=== PATIENT | female | born 1985 ===

== ENCOUNTER 2021-06-07 13:43 | Outpatient (CLI) | payer OTHER ==
[2021-06-07] MEDS ORDERED: LACTATED RINGERS 500 ML IV ONE (14:49)
[2021-06-07] MEDS ORDERED: LACTATED RINGERS 1,000 ML IV SCH (15:00)
[2021-06-07] MEDS ORDERED: TERBUTALINE 1 MG/1 ML INJ SUB-Q STA (16:20)
[2021-06-07 19:44] LABS: Bacteria,Urine 1+ /HPF (Negative); Bilirubin,Urine NEG (Negative); Blood,Urine NEG (Negative); Color,Urine Straw (Yellow); Protein,Urine <15 mg/dL mg/dL (Negative); WBC,Urine < 1.0 /HPF (0.0-6.0)
[2021-06-07 20:07] VITALS: BP 105/66
== END 2021-06-07 20:50 | disposition home or self-care (01) ==
LOC: APU 13:43 → TRG 13:43
DX: O62.9 Abnormality of forces of labor, unspecified (principal); Z3A.33 33 weeks gestation of pregnancy
CPT/HCPCS: 59025; 81001; 96360; 96361; 96372; J3105; J7120

== ENCOUNTER 2021-06-12 19:52 | Outpatient (CLI) | payer OTHER ==
[2021-06-12 21:11] VITALS: BP 103/60
[2021-06-12] MEDS ORDERED: LACTATED RINGERS 1,000 ML IV ONE (21:22)
[2021-06-12 22:17] LABS: Bilirubin,Urine NEG (Negative); Blood,Urine NEG (Negative); Color,Urine Straw (Yellow); Protein,Urine <15 mg/dL mg/dL (Negative); Urobilinogen,Urine < 2.0 mg/dL (<2.0)
== END 2021-06-12 22:50 | disposition home or self-care (01) ==
LOC: TRG 19:52 → APU 20:17 → TRG 22:50
DX: Z34.93 Encounter for supervision of normal pregnancy, unspecified, third trimester (principal); Z3A.33 33 weeks gestation of pregnancy
CPT/HCPCS: 59025; 81001

== ENCOUNTER 2021-07-18 19:47 | Inpatient (IN) | payer OTHER ==
[2021-07-18] MEDS ORDERED: TERBUTALINE 1 MG/1 ML INJ SUB-Q PRN (20:34)
[2021-07-18] MEDS ORDERED: LOPERAMIDE 2 MG CAP PO PRN (20:34)
[2021-07-18] MEDS ORDERED: ACETAMINOPHEN 325 MG TAB PO PRN (20:34)
[2021-07-18] MEDS ORDERED: BUTORPHANOL 2 MG/1 ML INJ IV PRN (20:34)
[2021-07-18] MEDS ORDERED: miSOPROStol 200 MCG TAB PR PRN (20:34)
[2021-07-18] MEDS ORDERED: CARBOPROST TROMETHAMINE 250 MCG/1 ML INJ IM PRN (20:34)
[2021-07-18] MEDS ORDERED: MINERAL OIL 30 ML ORAL LIQD PO PRN (20:34)
[2021-07-18] MEDS ORDERED: OXYTOCIN 10 UNIT/1 ML INJ IM PRN (20:34)
[2021-07-18] MEDS ORDERED: METHYLERGONOVINE MALEATE 0.2 MG/ML VIAL IM PRN (20:34)
[2021-07-18] MEDS ORDERED: ONDANSETRON 4 MG/2 ML INJ IV PRN ×2 (20:34→21:46)
[2021-07-18] MEDS ORDERED: ePHEDrine SULFATE 50 MG/1 ML INJ IV PRN ×2 (20:34→21:46)
[2021-07-18] MEDS ORDERED: fentaNYL 100 MCG/2 ML INJ IV PRN (20:34)
[2021-07-18] MEDS ORDERED: LIDOCAINE (2%) 20 MG/1 ML VIAL 20 ML MDV INFILTRATI ONE (20:45)
[2021-07-18] MEDS ORDERED: AMPICILLIN/NS 2 GM/100 ML 2 GM/100 ML BAG IV ONE (21:00)
[2021-07-18] MEDS ORDERED: OXYTOCIN DRIP 30 UNITS/500 ML BAG IV SCH (21:00)
[2021-07-18 21:09] LABS: Hematocrit 35.9 % (30.3-42.9); Hemoglobin 12.8 gm/dl (10.1-14.3); Mean Corpuscular HGB Conc 36 % (30-34); Mean Corpuscular Volume 96 fl (79-97); Platelet Count 162 K/mm3 (140-440); Red Blood Count 3.74 M/mm3 (3.65-5.03); Red Cell Distribution Width 14.7 % (13.2-15.2)
[2021-07-18] MEDS: LACTATED RINGERS 1,000 ML IV SCH ×2 (21:09→22:28)
[2021-07-18] MEDS ORDERED: diphenhydrAMINE 50 MG/ML VIAL IV PRN (21:46)
[2021-07-18] MEDS ORDERED: NalbUPHINE 10 MG/1 ML INJ IV PRN (21:46)
[2021-07-18] MEDS ORDERED: NALOXONE 2 MG/2 ML INJ IV PRN (21:46)
[2021-07-18] MEDS ORDERED: LACTATED RINGERS 250 ML IV SOLN IV ONE (21:46)
[2021-07-18] MEDS ORDERED: fentaNYL-BUPIV 2 MCG/ML-0.125% 200 MCG/100 ML BAG EPIDURAL SCH (22:00)
--- NOTE | 2021-07-18 22:12 | Anesthesia Consultation ---
Anesthesia Consult and Med Hx Date of service: 07/18/21 - Airway Anesthetic Teeth Evaluation: Good ROM Head & Neck: Adequate Mental/Hyoid Distance: Adequate Mallampati Class: Class I Intubation Access Assessment: Good - Pulmonary Exam CTA: Yes - Cardiac Exam Cardiac Exam: RRR - Pre-Operative Health Status ASA Pre-Surgery Classification: ASA2 Proposed Anesthetic Plan: Epidural - Pulmonary Hx Smoking: No Hx Asthma: No COPD: No Hx Pneumonia: No Hx Sleep Apnea: No - Cardiovascular System Hx Hypertension: No Hx Heart Attack/AMI: No Hx Angina: No - Central Nervous System Hx Seizures: No Hx Psychiatric Problems: Yes (anxiety, depression on wellbutrin) - Gastrointestinal Hx Gastroesophageal Reflux Disease: No - Endocrine Hx Renal Disease: No Hx End Stage Renal Disease: No Hx Liver Disease: No Hx Insulin Dependent Diabetes: No Hx Non-Insulin Dependent Diabetes: No Hx Hypothyroidism: No Hx Hyperthyroidism: No - Hematic Hx Anemia: Yes (on meds) Hx Sickle Cell Disease: No - Other Systems Hx Alcohol Use: No
--- NOTE | 2021-07-18 22:13 | Progress Note ---
Labor Epidural - Labor Epidural Start Time: 21:56 Stop Time: 22:06 Performed by:: DEDE MUHAMMAD Procedure: Patient is requesting epidural for labor and pain. H&P, labs were reviewed. Patient IDed, H&P reviewed, all questions and concerns were answered, and consent was signed. Timeout was performed at bedside. Patient in sitting position. Sterile prep and drape was performed. 3ml of 1% lidocaine skin wheal at L[3]- L [4]. 18-gauge C4Robo epidural needle was advanced to loss of resistance with air technique 5cm. Negative CSF negative blood. Epidural catheter advanced to [10] centimeters. [negative] Aspiration [negative] test dose. Sterile dressing applied. Patient tolerated procedure.
--- NOTE | 2021-07-18 23:12 | History and Physical Report ---
History of Present Illness Date of examination: 07/18/21 Date of admission: 07/18/21 20:34 Chief complaint: Labor Pains History of present illness: records not present; patient states course complicated by Depression (Wellbutrin) and +GBS Past History Past Medical History: no pertinent history Past Surgical History: no surgical history Social history: no significant social history - Obstetrical History Expected Date of Delivery: 07/26/21 Actual Gestation: 38 Week(s) 6 Day(s) : 7 Para: 3 Hx # Term Pregnancies: 3 Number of Living Children: 3 Medications and Allergies Allergies Allergy/AdvReac Type Severity Reaction Status Date / Time No Known Allergies Allergy Unverified 06/07/21 14:47 Active Meds: Active Medications Acetaminophen (Acetaminophen 325 Mg Tab) 650 mg PO Q4H PRN PRN Reason: Pain, Mild (1-3) Butorphanol Tartrate (Butorphanol 2 Mg/1 Ml Inj) 1 mg IV Q2H PRN PRN Reason: Pain, Moderate(4-6) LABOR PAIN Carboprost Tromethamine (Carboprost Tromethamine 250 Mcg/1 Ml Inj) 250 mcg IM ONCE PRN PRN Reason: Uterine Bleeding Diphenhydramine HCl (Diphenhydramine 50 Mg/Ml Vial) 12.5 mg IV Q2H PRN PRN Reason: Itching Ephedrine Sulfate (Ephedrine Sulfate 50 Mg/1 Ml Inj) 10 mg IV Q2M PRN PRN Reason: Hypotension Fentanyl (Fentanyl 100 Mcg/2 Ml Inj) 100 mcg IV Q2H PRN PRN Reason: Pain,Severe (7-10) LABOR PAIN Lactated Ringer's (Lactated Ringers) 1,000 mls @ 125 mls/hr IV DIRECT DANA Last Admin: 07/18/21 22:28 Dose: 125 mls/hr Documented by: Oxytocin/Sodium Chloride (Pitocin/Ns 30 Unit/500ml) 30 units in 500 mls @ 40 mls/hr IV TITR DANA; Protocol Last Titration: 07/18/21 23:03 Dose: 8 ml/hr, 8 mls/hr Documented by: Fentanyl/Bupivacaine/Sodium Chlor (Fentanyl-Bupiv 2 Mcg/Ml-0.125%) 200 mcg in 100 mls @ 12 mls/hr EPIDURAL TITR DANA; Protocol Last Admin: 07/18/21 22:33 Dose: 12 mls/hr Documented by: Loperamide HCl (Loperamide 2 Mg Cap) 2 mg PO ONCE PRN PRN Reason: give with Hemabate Methylergonovine Maleate (Methylergonovine Maleate 0.2 Mg/Ml Vial) 0.2 mg IM ONCE PRN PRN Reason: Uterine Bleeding Mineral Oil (Mineral Oil 30 Ml Oral Liqd) 30 ml PO QHS PRN PRN Reason: Constipation Misoprostol (Misoprostol 200 Mcg Tab) 800 mcg NE ONCE PRN PRN Reason: Uterine Bleeding Nalbuphine HCl (Nalbuphine 10 Mg/1 Ml Inj) 2.5 mg IV Q2H PRN PRN Reason: Itching Naloxone HCl (Naloxone 2 Mg/2 Ml Inj) 0.2 mg IV Q5M PRN PRN Reason: Respiratory sedation Ondansetron HCl (Ondansetron 4 Mg/2 Ml Inj) 4 mg IV Q8H PRN PRN Reason: Nausea And Vomiting Oxytocin (Oxytocin 10 Unit/1 Ml Inj) 10 unit IM ONCE PRN PRN Reason: Uterine Bleeding Terbutaline Sulfate (Terbutaline 1 Mg/1 Ml Inj) 0.25 mg SUB-Q ONCE PRN PRN Reason: Hyperstimulation/Hypertonicity Review of Systems All systems: negative - Vital Signs Vital signs: Vital Signs Pulse Pulse Ox 102 H 98 07/18/21 20:13 07/18/21 20:13 Temp Pulse Resp BP Pulse Ox 98.4 F 78 18 93/50 97 07/18/21 20:15 07/18/21 23:04 07/18/21 20:15 07/18/21 22:55 07/18/21 23:04 - Physical Exam Breasts: Positive: normal Cardiovascular: Regular rate Lungs: Positive: Clear to auscultation, Normal air movement Abdomen: Positive: normal appearance, soft, normal bowel sounds Genitourinary (Female): Positive: normal external genitalia, normal perenium Vagina: Positive: normal moisture Uterus: Positive: enlarged - Obstetrical FHR: category 2 FHR comments: FHR: 130, moderate varabiity, -accels, +occ mild varabile decels Uterine Contraction Monitor Mode: External Cervical Dilatation: 7 (SRoM of a large amount of clear fluid at 2255) Cervical Effacement Percentage: 30 station: -3 Uterine Contraction Pattern: Regular Uterine Tone Measurement Phase: Resting Uterine Contraction Intensity: Moderate Results Result Diagrams: 07/18/21 20:45 Abnormal lab results 07/18/21 Range/Units 20:45 MCH 34 H (28-32) pg MCHC 36 H (30-34) % All other labs normal. Assessment and Plan A: IUP @ 38 6/7 Weeks Category II Tracing Active Labor GBS Positive p: Admit to L&D per Routine Orders GBS Prophylaxis Pitocin Augmentation
[2021-07-19] MEDS ORDERED: LANOLIN/ZINC/DIMETHICONE (LANSINOH) 7 GM TP PRN (00:18)
[2021-07-19] MEDS ORDERED: WITCH HAZEL/ GLYCERIN PAD TP PRN (00:18)
--- NOTE | 2021-07-19 00:27 | Procedure Note ---
OB Delivery Note - Delivery Date of Delivery: 07/18/21 (2340) Surgeon: ABBY THOMPSON Estimated blood loss: 200cc - Vaginal Delivery presentation: vertex Delivery position: OA Intrapartum events: mult.variable deceleratio Delivery induction: none Delivery augmentation: pitocin Delivery monitor: external FHT, external uterine Route of delivery: Delivery placenta: manual Delivery cord: nuchal cord, 3 umbilical vessels Episiotomy: none Delivery laceration: none Anesthesia: epidural Delivery comments: of a live 7'12 female over a intact perineum under epidural anesthesia with Apgars of 8 and 9 at 2340 on 07/18/2021. Nuchal cord x 1 easily manually reduced on the perineum prior to delivery of the anterior shoulder. directly to maternal abd/chest, skin to skin contact. Delayed cord clamping and cutting; Cord cut by the Father of the Baby. Manual extraction of the placenta complete and intact with Saenz side presenting at 1200 on 07/19/2021. Placenta manually removed with one attempt. Fundus is firm and midline located 4 below the U. 800mcg of Cytotec placed per rectum. Lochia is scant. GBS prophylaxis x 1. Placenta to pathology. - Infant A at 1 minute: 8 at 5 minutes: 9 Infant Gender: Female (7'12)
[2021-07-19] MEDS: IBUPROFEN 600 MG TAB PO SCH ×3 (04:28→19:56)
[2021-07-19] MEDS: HYDROcodone/ACETAMINOPHEN 5-325 MG TAB PO PRN ×2 (08:20→18:30)
[2021-07-19] MEDS: PRENATAL VIT27-FE FUMARATE-FOLIC ACID VIT TAB PO SCH (09:46)
[2021-07-19] MEDS: FERROUS SULFATE 325 MG TAB PO SCH (09:46)
--- NOTE | 2021-07-19 11:35 | Progress Note ---
Assessment and Plan A: S/P Talib Crusty, cracked, painful nipples P: Continue routine pp orders consultants intern to see Will refer to breast specialist Consulted Dr Kent D/C home tomm if stable Subjective - Subjective Date of service: 07/19/21 Principal diagnosis: s/p Patient reports: appetite normal, voiding normally, pain well controlled, flatus, ambulating normally, other (talib nipples cracked, crusty, and painful x 14 yrs per pt) [place]: doing well, bottle feeding Objective - Vital Signs Latest vital signs: Vital Signs Temp Pulse Resp BP BP Pulse Ox Pulse Ox 07/19/21 08:20 16 07/19/21 07:29 98.0 F 68 16 101/64 97 07/19/21 02:10 99.0 F 72 16 107/63 100 100 07/19/21 01:20 79 94 07/19/21 01:19 79 100 07/19/21 01:14 68 100 07/19/21 01:09 79 103/59 100 07/19/21 01:04 71 100 07/19/21 00:59 75 100 07/19/21 00:54 82 108/65 100 07/19/21 00:49 85 100 07/19/21 00:44 81 100 07/19/21 00:39 93 H 102/55 100 07/19/21 00:34 92 H 100 07/19/21 00:29 91 H 100 07/19/21 00:24 97 H 106/54 99 07/19/21 00:19 90 100 07/19/21 00:14 93 H 99 07/19/21 00:09 86 92/53 97 07/19/21 00:04 81 97 07/18/21 23:59 86 98 07/18/21 23:54 75 108/54 97 07/18/21 23:49 84 99 07/18/21 23:44 88 98 07/18/21 23:40 96 H 104/59 07/18/21 23:39 95 H 100 07/18/21 23:34 68 98 07/18/21 23:29 67 96 07/18/21 23:26 75 89/52 07/18/21 23:25 75 90/52 07/18/21 23:24 84 99 07/18/21 23:19 83 97 07/18/21 23:14 74 98 10/13/21 23:10 67 99/49 07/18/21 23:09 71 97 07/18/21 23:04 78 97 07/18/21 22:59 68 99 07/18/21 22:55 82 93/50 07/18/21 22:54 76 98 07/18/21 22:49 66 95 07/18/21 22:44 81 96 07/18/21 22:39 82 95/50 97 07/18/21 22:34 81 97 07/18/21 22:29 81 97 07/18/21 22:24 79 98 07/18/21 22:21 77 100/56 07/18/21 22:19 82 98 07/18/21 22:18 84 89 07/18/21 22:16 89 104/56 07/18/21 22:14 90 99 07/18/21 22:10 95 H 112/77 07/18/21 22:09 90 100 07/18/21 22:08 106/56 07/18/21 22:06 74 96/52 07/18/21 22:04 80 108/57 98 07/18/21 22:03 80 73 L 07/18/21 22:02 94 H 114/60 07/18/21 21:58 95 H 100 07/18/21 21:52 84 98 07/18/21 21:50 83 101/56 07/18/21 21:48 81 91 07/18/21 21:47 77 99 07/18/21 21:42 74 100 07/18/21 21:34 90 111/61 07/18/21 21:29 89 98 07/18/21 21:24 89 99 07/18/21 21:19 79 111/60 99 07/18/21 21:17 99 07/18/21 21:14 94 H 98 07/18/21 21:09 81 98 07/18/21 20:50 86 98 07/18/21 20:45 81 98 07/18/21 20:40 88 99 07/18/21 20:23 124 H 98 07/18/21 20:18 109 H 98 07/18/21 20:15 98.4 F 103 H 18 110/66 98 07/18/21 20:14 86 110/66 07/18/21 20:13 102 H 98 Intake and Output 07/18/21 07/19/21 07/19/21 22:59 06:59 14:59 Intake Total 164.583 121.4 240 Output Total 600 Balance 164.583 -478.6 240 Intake: IV 164.583 1.4 Lactated Ringers 1,000 ml 164.583 @ 125 mls/hr IV DIRECT DANA Rx#:[id number] PITOCin/NS 30 UNIT/500ML 1.4 30 units In 500 ml @ 40 mls/hr IV TITR DANA Rx#: [id number] Oral 120 240 Output: Urine 600 Void 600 Other: Total, Intake Amount 120 240 Total, Output Amount 600 # Voids Void 1 1 Weight 152 lb Estimated Blood Loss 200 - Exam Breasts: Present: other (nipples cracked, crusty, and painful x 14 years) Abdomen: Present: normal appearance, soft, normal bowel sounds Vulva: both: normal Uterus: Present: normal, firm, fundal height below umbilicus Extremities: Present: normal - Labs Labs: Abnormal lab results 07/18/21 Range/Units 20:45 MCH 34 H (28-32) pg MCHC 36 H (30-34) %
--- NOTE | 2021-07-19 12:24 | Post Anesthesia Evaluation ---
- Post Anesthesia Evaluation Patient Participated: Yes Airway Patent: Yes Stable Respiratory Function: Yes Nausea/Vomiting: No Temp > 96.8F: Yes Pain Manageable: Yes Adequeate Hydration: Yes Anesthesia Complications: No Block Receding Appropriately: Yes Patient on Ventilator: No
[2021-07-19 14:08] LABS: Hematocrit 30.9 % (30.3-42.9); Hemoglobin 11.2 gm/dl (10.1-14.3)
--- NOTE | 2021-07-19 19:17 | Event Note ---
Date: 07/19/21 Pt was seen by the ada accommodation consultant. Animal Nursery Worker was unable to find a breast specialist to come in and evaluate pt's nipples. Pt was advised to f/u with a breast specialist Dr Seals or Dr Still on an out pt basis. Dr Nguyen was consulted and agreed with plan.
[2021-07-20] MEDS: FERROUS SULFATE 325 MG TAB PO SCH ×2 (01:59→10:02)
[2021-07-20] MEDS: IBUPROFEN 600 MG TAB PO SCH ×2 (02:00→10:02)
--- NOTE | 2021-07-20 07:33 | Discharge Summary ---
Providers - Providers Date of Admission: 07/18/21 20:34 Date of discharge: 07/20/21 Attending physician: NAMRATA ZAYAS MD Primary care physician: NAMRATA ZAYAS MD Hospitalization Reason for admission: active labor, IUP at term Delivery: Episiotomy: none Laceration: none Other procedures: none complications: none Discharge diagnosis: IUP at term delivered [place] baby: female Hospital course: Pt was admitted in active labor and had a w/o pp complications. See H&p, delivery summary, and pp notes. Condition at discharge: Stable Disposition: HOME / SELF CARE / HOMELESS Plan - Discharge Medications Prescriptions: Ibuprofen [Motrin 600 MG tab] 600 mg PO Q6HR PRN #30 tablet PRN Reason: Menstrual Cramps - Provider Discharge Summary Activity: routine, no sex for 6 weeks, no heavy lifting 4 weeks, no strenuous exercise Diet: routine Instructions: routine Additional instructions: [] Smoking cessation referral if applicable(refer to patient education folder for contact #) [] Refer to [facility] Booklet Call your doctor immediately for: * Fever > 100.5 * Heavy vaginal bleeding ( >1 pad per hour) * Severe persistent headache * Shortness of breath * Reddened, hot, painful area to leg or breast * Drainage or odor from incision. * Keep incision clean and dry at all times and follow doctor's instructions regarding bathing/showering - Follow up plan Follow up: NAMRATA ZAYAS MD [Primary Care Provider] - 6 Weeks
[2021-07-20] MEDS: PRENATAL VIT27-FE FUMARATE-FOLIC ACID VIT TAB PO SCH (10:02)
[2021-07-20] MEDS: HYDROcodone/ACETAMINOPHEN 5-325 MG TAB PO PRN (15:18)
[2021-07-20 19:22] VITALS: BP 100/55
== END 2021-07-20 18:45 | disposition home or self-care (01) | DRG 775 ==
LOC: TRG 19:47 → APU 19:48 → TRG 20:34 → LD 20:34 → OB 07-19 01:49
PROVIDERS: ADMIT Obstetrics & Gynecology; ATTEND Obstetrics & Gynecology
PROC: 10E0XZZ Delivery of Products of Conception, External Approach (ICD-10-PCS; principal; 2021-07-18)
PROC: 3E0R3BZ Introduction of Anesthetic Agent into Spinal Canal, Percutaneous Approach (ICD-10-PCS; 2021-07-18)
PROC: 00HU33Z Insertion of Infusion Device into Spinal Canal, Percutaneous Approach (ICD-10-PCS; 2021-07-18)
DX: O99.824 Streptococcus B carrier state complicating childbirth (principal); O69.81X0 Labor and delivery complicated by cord around neck, without compression, not applicable or unspecified; Z3A.38 38 weeks gestation of pregnancy; O99.344 Other mental disorders complicating childbirth; F32.A Depression, unspecified; Z37.0 Single live birth; Z20.822 Contact with and (suspected) exposure to COVID-19
CPT/HCPCS: 36415; 59025; 85014; 85018; 85027; 86592; 86706; 86762; 86850; 86900; 86901; 87806; 88307; 96360; 99211; G0378; G0463; J0290; J2590; J7120; U0003